=== PATIENT | female | born 1950 | race Caucasian/White ===

== ENCOUNTER → 2017-01-29 | Outpatient (CLI) | payer MEDICARE, OTHER ==
[~2017-01-29] MED LIST: ACTOPLUS MET 151 TA2 PO; ASPIRIN325 M1 PO; ASPIRINEC PO; ATENOLOL50 MG PO; AVANDAMET 4 MG/1 TA1 PO; BENICAR PO; BISACODYL EC5 MG DOB; CELEBREX PO; COUMADIN PO; COUMADIN4 MG PO; CRESTOR PO; CRESTOR40 MG PO; HYDROCODON-ACE1 EAC7 PO; IBUPROFEN800 MG PO; IMDUR PO; LORTAB 5/500 TA1 TA1 PO; LORTAB 7.5-5001 TAB PO; NORCO 5/325 TAB1 TAB PO; PLAVIX PO; PROTONIX PO; SKELAXIN PO; SYNTHROID PO; TENORETIC PO; VOLTAREN100 GM; WELCHOL625 MG PO; WELLBUTRIN XL PO; ZETIA PO; ZOLOFT PO
--- NOTE | ~2017-01-29 | ST ---
Unit #: [id number] #: [id number] Patient: ZOIE EGAN [id number] [address] [place], [place] [address] [id number] O MR#: [id number] NAME: ZOIE EGAN : 1950 SEX: F STUDY DATE/TIME: 01/29/2017 UNIT: [facility] ROOM: STUDY DESCRIPTION: Attending Physician: Rosalio Lemus M.D. Referring Physician: Rosalio Lemus M.D. Primary Care Physician: Moreno Zelaya M.D. CARDIOLOGY REPORT EXAM Lexiscan Cardiolite stress test. FINDINGS Baseline EKG: Normal sinus rhythm with ventricular rate 64 beats per minute, mild left atrial abnormality, questionable Q wave in V1, poor R-wave progression. PROCEDURE Lexiscan is a 4-minute test with Lexiscan being injected within the first minute followed by Cardiolite. EKG during the test was equivocal to baseline. I noted a rare premature atrial contraction. The patient had no complaints of chest pain, palpitations, or dizziness. Had increased shortness of breath and fatigueness which resolved in recovery phase. Maximum heart rate response was 78 beats per minute with a maximum blood pressure response of 156/77 mmHg. Cardiolite was injected after Lexiscan within the first minute of the test. Radionuclide tests pending. Correlate with nuclear images. Dictated by... Harleen Miles A.P.R.N. for Deon Arias TD: 01/29/2017 09:56 JOB #: [id number] CARDIOLOGY REPORT Page 1 of 1 X Harleen Miles APRN CARDIOLOGY REPORT
--- NOTE | ~2017-01-29 | TH ---
Unit #: [id number] #: [id number] Patient: ZOIE EGAN [id number] [address] [place], [place] [address] [id number] O MR#: [id number] NAME: ZOIE EGAN : 1950 SEX: F STUDY DATE/TIME: 01/29/2017 UNIT: [facility] ROOM: STUDY DESCRIPTION: Attending Physician: Rosalio Lemus M.D. Referring Physician: Rosalio Lemus M.D. Primary Care Physician: Moreno Zelaya M.D. CARDIOLOGY REPORT EXAM Lexiscan Cardiolite stress test, nuclear portion. PROCEDURE Using technetium 99m labeled Cardiolite, rest and stress SPECT images were obtained. Multiple SPECT images were obtained in various views including horizontal and vertical long axis and short axis views of the left ventricle. Images were obtained by gated SPECT method. The patient was administered 11.95 mCi of Cardiolite at rest. The patient was administered 33 mCi of Cardiolite after Lexiscan infusion was completed. On the stress images, there is an extremely large area of severe decreased isotope activity involving the entire anterior wall, anteroseptal, anteroapical wall of the left ventricle. The rest images also show an extremely large area of severe decreased isotope activity involving the entire anterior wall, anteroseptal, and anteroapical wall of the left ventricle. Comparing rest and stress images, there is suspicion for large myocardial infarction involving the entire anterior wall, anteroapical, and anteroseptal wall of the left ventricle. The left ventricular ejection fraction is calculated to be 56% which is a significant overestimation. There is a large wall motion abnormality including the entire anterior wall, anteroapical, and anteroseptal wall of the left ventricle. There is moderate left ventricular cavity dilatation both at rest and post stress. CONCLUSION 1. Suspicion for large myocardial infarction involving the entire anterior wall, anteroseptal, and anteroapical wall of the left ventricle. 2. No obvious stress-induced ischemia noted. 3. The left ventricular ejection fraction is calculated to be 56% but it appears much lower on visual estimation. 4. There is moderate left ventricular cavity dilatation both at rest and post stress. 5. Suspicion for severe ischemic cardiomyopathy with large anterior wall, anteroapical, and anteroseptal myocardial infarction and no obvious stress-induced ischemia. Dictated by... Yuko Morales M.D. Unit #: [id number] #: [id number] Patient: ZOIE EGAN FORD/bib TD: 01/29/2017 14:04 JOB #: [id number] CARDIOLOGY REPORT Page 1 of 1 X Yuko Morales MD <ELECTRONICALLY SIGNED> 03/07/17 1429 CARDIOLOGY REPORT
== END | disposition home or self-care (01) ==
LOC: CNUC 07:12
DX: I25.119 Atherosclerotic heart disease of native coronary artery with unspecified angina pectoris (principal); Z98.61 Coronary angioplasty status; I51.7 Cardiomegaly
CPT/HCPCS: 78452; 93017; A9500; J2785